=== PATIENT | male | born 1940 | race Caucasian/White ===

== ENCOUNTER → 2018-04-21 | Outpatient (CLI) | payer OTHER ==
[~2018-04-21] VITALS: Ht 167.6 cm; Wt 87.5 kg
[~2018-04-21] MED LIST: ALLOPURINOL 10100 M1 PO; ASPIR 8181 MG PO; AVAPRO300 MG PO; CRESTOR20 MG PO; FLOMAX0.4 MG PO; LASIX 20 MG TAB20 MG PO; LOPRESSOR100 M1 PO; MULTI VITAMIN1 EACH PO; NORVASC5 MG PO; OMEGA 3 1,0001 EACH PO; PLAVIX 75 MG TA75 M1 PO; PRIMIDONE50 MG PO; SENNA8.6 MG PO; VITAMIN D31000 UNIT PO
--- NOTE | ~2018-04-21 | CRIT ---
[facility] [place] [address] CRITICAL CARE NOTE Name: SAMSON ALEXANDER Jammie Room #: REG MARQUIS Croft.#: [id number] Admission: 04/21/18 Attend Phys: Mitchell Renee MD Discharge: Date of : 36 Report #: [id number] THIS REPORT FOR: //name// CC: Vinicius Renee DATE OF SERVICE: 04/21/2018 Followup visit for lumbar epidural steroid injection, left paramedian injection or transforaminal injection. The patient returns to pain clinic today and we have received preauthorization to proceed with an injection. We receive authorization for a transforaminal injection. Today, his pain has changed somewhat since he was first here and his pain is more bilateral in nature. We will proceed with a left paramedian epidural injection under fluoroscopic guidance. Degenerative condition is noted throughout the spine consistent with age. His symptoms follow an L4-L5, L5-S1 distribution. He has been off Plavix for 7 days. All other medications were reviewed and reconciled and are on the medical chart for review. PHYSICAL EXAMINATION: Pleasant, mildly depressed. Blood pressure 142/72, heart rate 88. There was a small tremor noted bilaterally in the upper extremities. He moves from sitting to standing position with some difficulty straightening up. Straight leg raising bilaterally reproduces pain across the low back and into the hips and down the posterior lateral aspect of each leg. Sensation is intact. No weakness is noted. IMPRESSION: Chronic low back pain with radiculopathy. PROCEDURE: Epidural steroid injection under fluoroscopic guidance, left paramedian approach. DESCRIPTION OF PROCEDURE: He was taken to fluoroscopic suite, placed prone, skin prepped with ChloraPrep. Skin anesthetized left to midline and a 20-gauge Tuohy epidural needle advanced into the epidural space to the left of midline. 1 mL of Omnipaque demonstrated good spread into the epidural space and into the neural foramen on the left extending also to the right. It was then followed by 3 mL of 0.5% lidocaine mixed with 80 mg of triamcinolone. He tolerated the procedure well and was observed for 45 minutes and discharged. [address] [address] CRITICAL CARE NOTE Name: SAMSON ALEXANDER [id number] Admission: 04/21/18 Attend Phys: Mitchell Renee MD Discharge: Date of : 36 Report #: [id number] Followup visit planned in the pain clinic on an as-needed basis. We do not intend a series of injections. By: [id number] Mitchell Renee MD /nt
[2018-04-21 13:52] VITALS: BP 142/72
== END | disposition home or self-care (01) ==
LOC: PAIN 06:19
DX: M54.16 Radiculopathy, lumbar region (principal); G89.29 Other chronic pain; Z79.82 Long term (current) use of aspirin; Z79.899 Other long term (current) drug therapy

== ENCOUNTER 2020-05-27 17:12 | Emergency (ER) | payer OTHER ==
[~2020-05-27] VITALS: Ht 167.6 cm; Wt 88.0 kg
[2020-05-27 18:46] VITALS: BP 144/60
== END 2020-05-27 18:57 | disposition home or self-care (01) ==
LOC: ER 17:12
DX: R58 Hemorrhage, not elsewhere classified (principal); Z95.0 Presence of cardiac pacemaker; Z79.899 Other long term (current) drug therapy; Z88.6 Allergy status to analgesic agent; Z88.8 Allergy status to other drugs, medicaments and biological substances; Z79.82 Long term (current) use of aspirin

== ENCOUNTER 2020-06-01 21:47 | Emergency (ER) | payer OTHER ==
[~2020-06-01] VITALS: Ht 167.6 cm; Wt 90.3 kg
[2020-06-01 21:48] VITALS: BP 166/64
[2020-06-01] MEDS ORDERED: BACTRIM DS TAB1 EACH PO (23:38)
== END 2020-06-01 23:45 | disposition home or self-care (01) ==
LOC: ER 21:47
DX: S61.412D Laceration without foreign body of left hand, subsequent encounter (principal); L08.9 Local infection of the skin and subcutaneous tissue, unspecified; Z95.0 Presence of cardiac pacemaker; Z79.82 Long term (current) use of aspirin; Z79.01 Long term (current) use of anticoagulants; Z79.899 Other long term (current) drug therapy; X58.XXXD Exposure to other specified factors, subsequent encounter